=== PATIENT | female | born 1970 | race Caucasian/White ===

== ENCOUNTER → 2021-05-02 07:59 | Outpatient (CLI) | payer OTHER, MEDICARE, SELFPAY ==
--- NOTE | 2021-05-02 08:02 | US_ITS ---
PROCEDURE: US GALLBLADDER CLINICAL INDICATION: N/V History of colon and lung cancer COMPARISON: No exams were available for comparison FINDINGS: Pancreas: Unremarkable Liver: There are numerous lesions within the liver with varying areas of echogenicity mostly hyperechoic which may be seen with colon cancer metastasis. The largest lesion is in the right hepatic lobe measuring approximately [address] of the abdomen without and with contrast suggested for further evaluation.. There is appropriate direction of blood flow within a non dilated portal vein. Right kidney: Unremarkable appearing. No hydronephrosis. Gallbladder: Gallbladder is contracted. The gallbladder wall appears slightly thickened at 4 mm. There are numerous small foci of slight increased echogenicity along the gallbladder wall both anteriorly and posteriorly consistent with adenomyomatosis. No pericholecystic fluid. Common bile duct is normal at 2 mm. No shadowing stones apparent IMPRESSION: 1. Metastatic disease of the liver. 2. Adenomyomatosis of the gallbladder. Dictated by: Cornelio Rider MD 05/02/2021 17:30 Cornelio Rider MD in [facility] 05/02/2021 17:30
== END ==
PROVIDERS: PCP Emergency Medicine; Visit Provider Emergency Medicine
DX: N39.0 Urinary tract infection, site not specified (principal); B96.1 Klebsiella pneumoniae [K. pneumoniae] as the cause of diseases classified elsewhere; B96.20 Unspecified Escherichia coli [E. coli] as the cause of diseases classified elsewhere
CPT/HCPCS: 76705